=== PATIENT | male | born 1950 | race Caucasian/White ===

== ENCOUNTER 2021-07-06 14:17 | Outpatient (CLI) | payer MEDICARE ==
[~2021-07-06 14:17] MED LIST: AMLO5TAB4 PO; HYDR12.517 PO; METF500T17 PO
[2021-07-06] MEDS ORDERED: VITAMIN D3 PO (14:42)
[2021-07-06] MEDS ORDERED: MELO7.5T31 PO (14:42)
[2021-07-06] MEDS ORDERED: B-12 PO (14:42)
[2021-07-06] MEDS ORDERED: VALS320T2 PO (14:42)
[2021-07-06] MEDS ORDERED: MAGN400T36 PO (14:42)
[2021-07-06] MEDS ORDERED: TAMS-11 PO ×2 (14:42→15:05)
[2021-07-06] MEDS ORDERED: POTASSIUM CITRATE PO (14:42)
[2021-07-06] MEDS ORDERED: ALLO100T30 PO (15:05)
[2021-07-06] MEDS ORDERED: COLC0.6T50 PO (15:05)
[2021-07-06 15:22] LABS: BASOPHILS % (AUTO) 1 % (0-1); EOSINOPHILS % (AUTO) 1 % (1-7); LYMPHOCYTES % (AUTO) 33 % (22-44); MEAN CORPUSCULAR HEMOGLOBIN 30.5 pg (27.5-34.5); MEAN CORPUSCULAR HGB CONC 34.7 g/dL (33.2-36.2); MEAN PLATELET VOLUME 7.7 fL (7.4-10.4); MONOCYTES % (AUTO) 9 % (2-9); NEUTROPHILS % (AUTO) 56 % (42-75); PLATELET COUNT 186 x10^3/uL (130-400); RED BLOOD COUNT 5.24 x10^6/uL (4.38-5.82); RED CELL DISTRIBUTION WIDTH 13.7 % (9.4-14.8)
[2021-07-06 15:25] LABS: MICROSCOPIC AUTO
[2021-07-06 15:33] LABS: ALANINE AMINOTRANSFERASE 40 U/L (12-78); ALBUMIN 3.8 g/dL (3.4-5.0); ANION GAP 8 mmol/L (5-15); CALCIUM 8.9 mg/dL (8.5-10.1); CHLORIDE 103 mmol/L (98-107); CREATININE 1.48 mg/dL (0.7-1.3)
[2021-07-06 15:36] LABS: ALKALINE PHOSPHATASE 86 U/L (45-117); BILIRUBIN,TOTAL 1.3 mg/dL (0.2-1.0); TOTAL PROTEIN 7.8 g/dL (6.4-8.2)
[2021-07-06 15:54] LABS: INTERNATIONAL NORMALIZED RATIO 1.03 (0.93-1.1)
[2021-07-13] MEDS ORDERED: OXYC1TAB14 PO (08:45)
== END 2021-07-06 23:59 | disposition home or self-care (01) ==
LOC: STAR 14:17
PROVIDERS: ATTEND Neurological Surgery
DX: Z01.812 Encounter for preprocedural laboratory examination (principal); Z20.822 Contact with and (suspected) exposure to COVID-19; Z01.811 Encounter for preprocedural respiratory examination; Z01.810 Encounter for preprocedural cardiovascular examination; R79.1 Abnormal coagulation profile; R82.90 Unspecified abnormal findings in urine; R94.31 Abnormal electrocardiogram [ECG] [EKG]; M48.061 Spinal stenosis, lumbar region without neurogenic claudication; M43.06 Spondylolysis, lumbar region; M47.896 Other spondylosis, lumbar region; M54.17 Radiculopathy, lumbosacral region; Q79.1 Other congenital malformations of diaphragm; M47.814 Spondylosis without myelopathy or radiculopathy, thoracic region
CPT/HCPCS: 36415; 71046; 80053; 81001; 85025; 85610; 85730; 87086; 93005; U0003; U0005

== ENCOUNTER 2021-07-12 07:01 | Inpatient (IN) | payer MEDICARE ==
[~2021-07-12] VITALS: Ht 180.3 cm; Wt 115.4 kg
[~2021-07-12 07:01] MED LIST changes: +ALLO100T30 PO; +B-12 PO; +BUPIVACAINE/PF 0.5% ONE; +COLC0.6T50 PO; +EPINEPHRINE 1 MG/ML, 1ML ONE; +GENTAMICIN 80 MG/2 ML ONE; +MAGN400T36 PO; +MELO7.5T31 PO; +POTASSIUM CITRATE PO; +TAMS-11 PO; +VALS320T2 PO; +VANCOMYCIN 1,000 MG ONE; +VITAMIN D3 PO
[2021-07-12 07:29] VITALS: BP 144/76
[2021-07-12] MEDS ORDERED: LACTATED RINGERS 1,000 ML IV SCH (07:30)
[2021-07-12] MEDS ORDERED: CHLORHEXIDINE 15 ML UDC PO ONE (07:30)
[2021-07-12] MEDS ORDERED: PROMETHAZINE 25 MG/ML, 1ML IVPush PRN (08:00)
[2021-07-12] MEDS ORDERED: HYDROmorphone 1 MG/ML, 1ML INJ IVPush PRN (08:00)
[2021-07-12] MEDS ORDERED: ONDANSETRON 2MG/ML, 2ML IVPush PRN ×2 (08:00→12:00)
[2021-07-12] MEDS ORDERED: METHOCARBAMOL 1,000 MG in DEXTROSE 5% 100 ML IV PRN (08:00)
[2021-07-12] MEDS ORDERED: ACETAMINOPHEN 325 MG TABLET PO PRN (08:00)
[2021-07-12] MEDS ORDERED: OXYcodone 5 MG/5 ML ORAL.SOL UDC PO PRN (08:00)
[2021-07-12] MEDS ORDERED: hydrALAzine 20 MG/ML, 1ML IV PRN (08:00)
[2021-07-12] MEDS ORDERED: DIAZEPAM 5 MG/ML, 2ML IVPush PRN (08:00)
[2021-07-12] MEDS ORDERED: LABETALOL 5MG/ML, 20ML IV PRN (08:00)
[2021-07-12] MEDS ORDERED: MIDAZOLAM 1 MG/ML, 2ML ONE (08:11)
[2021-07-12] MEDS ORDERED: FENTANYL PF 250 MCG/5ML ONE (08:12)
[2021-07-12] MEDS ORDERED: SUCCINYLCHOLINE 20 MG/ML, 10ML ONE (08:45)
[2021-07-12] MEDS ORDERED: DEXAMETHASONE 4 MG/ML, 1ML ONE ×2 (09:28)
[2021-07-12] MEDS ORDERED: CEFAZOLIN 1,000 MG ONE ×2 (09:29)
[2021-07-12] MEDS ORDERED: PROPOFOL 10 MG/ML, 20ML ONE (09:51)
[2021-07-12] MEDS ORDERED: ROCURONIUM 10MG/ML,5ML ONE (09:51)
[2021-07-12] MEDS ORDERED: BUPIVACAINE/PF-EPI 0.5% 1:200K INFIL ONE (10:00)
[2021-07-12] MEDS ORDERED: VANCOMYCIN 1,000 MG IM ONE (10:01)
[2021-07-12] MEDS ORDERED: ONDANSETRON 2MG/ML, 2ML ONE (10:06)
[2021-07-12] MEDS ORDERED: BISACODYL 10 MG SUPP PR PRN (12:00)
[2021-07-12] MEDS ORDERED: METHOCARBAMOL 750 MG TABLET PO PRN (12:00)
[2021-07-12] MEDS ORDERED: DIPHENHYDRAMINE 50 MG/ML, 1ML IM PRN (12:00)
[2021-07-12] MEDS ORDERED: SENNA/DOCUSATE TABLET PO PRN (12:00)
[2021-07-12] MEDS ORDERED: MAGNESIUM HYDROXIDE 8%, 30ML UDC PO PRN (12:00)
[2021-07-12] MEDS ORDERED: DIPHENHYDRAMINE 50 MG CAPSULE PO PRN (12:00)
[2021-07-12] MEDS ORDERED: morphine SULFATE 10 MG/ML, 1ML IVPush PRN (12:00)
[2021-07-12] MEDS ORDERED: METHOCARBAMOL 1,000 MG in DEXTROSE 5% 100 ML IV ONE (12:00)
[2021-07-12] MEDS ORDERED: PROMETHAZINE 25 MG/ML, 1ML IM PRN (12:00)
[2021-07-12] MEDS ORDERED: PHARMACY MAY ADJ FOR RENAL FX MC PRN (12:00)
[2021-07-12] MEDS ORDERED: LABETALOL 5MG/ML, 20ML IVPush PRN (12:00)
[2021-07-12] MEDS ORDERED: DIPHENHYDRAMINE 50 MG/ML, 1ML IVPush PRN (12:00)
[2021-07-12] MEDS ORDERED: FENTANYL PF 100 MCG/2ML ONE (12:20)
[2021-07-12] MEDS ORDERED: OXYcodone 5 MG/5 ML ORAL.SOL UDC ONE (12:21)
[2021-07-12] MEDS: FENTANYL PF 100 MCG/2ML IV PRN ×4 (12:24→12:53)
[2021-07-12] MEDS: NS + 20MEQ KCL 1,000 ML IV SCH (16:35)
[2021-07-12] MEDS: TAMSULOSIN 0.4 MG CAP.ER.24H PO SCH (16:35)
[2021-07-12] MEDS: CEFAZOLIN PMX 1GM/50ML 50 ML IVPB SCH (18:28)
[2021-07-12] MEDS: OXYcodone/APAP 5/325MG TABLET PO PRN ×2 (18:28→19:12)
[2021-07-12] MEDS: INSULIN REGULAR 100 UNITS/ML, 3ML VIAL SQ-INSULIN PRN ×2 (18:33→21:30)
[2021-07-12 19:01] VITALS: BP 148/88
[2021-07-12] MEDS: SODIUM CHLORIDE FLUSH 10ML SYR IVF SCH (21:00)
[2021-07-12] MEDS: metFORMIN 500 MG TABLET PO SCH (21:29)
[2021-07-12 23:40] VITALS: BP 128/82
[2021-07-13] MEDS: CEFAZOLIN PMX 1GM/50ML 50 ML IVPB SCH (02:57)
[2021-07-13] MEDS: NS + 20MEQ KCL 1,000 ML IV SCH (02:57)
[2021-07-13 03:02] VITALS: BP 122/77
[2021-07-13] MEDS: OXYcodone/APAP 5/325MG TABLET PO PRN (03:49)
[2021-07-13] MEDS ORDERED: ENOXAPARIN 40 MG/0.4 ML SQ SCH (06:00)
[2021-07-13 06:40] LABS: ALBUMIN 2.8 g/dL (3.4-5.0); ANION GAP 9 mmol/L (5-15); CALCIUM 8.3 mg/dL (8.5-10.1); CHLORIDE 104 mmol/L (98-107); CREATININE 1.28 mg/dL (0.7-1.3)
[2021-07-13 06:55] VITALS: BP 106/66
[2021-07-13] MEDS: TAMSULOSIN 0.4 MG CAP.ER.24H PO SCH (08:30)
[2021-07-13] MEDS: HYDROcodone/APAP 5/325 TABLET PO PRN ×2 (08:31→13:04)
[2021-07-13] MEDS: SODIUM CHLORIDE FLUSH 10ML SYR IVF SCH (08:31)
[2021-07-13] MEDS: metFORMIN 500 MG TABLET PO SCH (08:31)
[2021-07-13] MEDS ORDERED: METH-640 PO (08:45)
[2021-07-13] MEDS ORDERED: OXYC1TAB12 PO (08:45)
[2021-07-13] MEDS ORDERED: ALLOPURINOL 100 MG TABLET PO SCH (09:00)
[2021-07-13] MEDS ORDERED: HYDROCHLOROTHIAZIDE 12.5 MG CAPSULE PO SCH (09:00)
[2021-07-13] MEDS ORDERED: VALSARTAN 320 MG TABLET PO SCH (09:00)
== END 2021-07-13 13:50 | disposition home or self-care (01) | DRG 455 ==
LOC: OUT 07:01 → 4NE 11:57
PROVIDERS: ADMIT Neurological Surgery; ATTEND Neurological Surgery
PROC: 0SG0071 Fusion of Lumbar Vertebral Joint with Autologous Tissue Substitute, Posterior Approach, Posterior Column, Open Approach (ICD-10-PCS; 2021-07-12)
PROC: 0SG00AJ Fusion of Lumbar Vertebral Joint with Interbody Fusion Device, Posterior Approach, Anterior Column, Open Approach (ICD-10-PCS; 2021-07-12)
PROC: 4A11X4G Monitoring of Peripheral Nervous Electrical Activity, Intraoperative, External Approach (ICD-10-PCS; 2021-07-12)
PROC: 01NB0ZZ Release Lumbar Nerve, Open Approach (ICD-10-PCS; principal; 2021-07-12 09:15)
DX: M48.062 Spinal stenosis, lumbar region with neurogenic claudication (principal); M43.06 Spondylolysis, lumbar region; M47.896 Other spondylosis, lumbar region; M51.16 Intervertebral disc disorders with radiculopathy, lumbar region; Z79.899 Other long term (current) drug therapy
CPT/HCPCS: 72100; 80048; 82040; 82962; C1713; C1767; G0378; J0171; J0690; J1100; J1650; J1815; J2250; J2405; J2704; J3010; J3370; J3480; C1762; C1769; C1889; J0330; J1580; J2800; J7120